=== PATIENT | female | born 1965 | race Caucasian/White ===

== ENCOUNTER → 2016-11-29 | Outpatient (CLI) | payer MEDICARE, BC ==
--- NOTE | 2016-11-29 09:34 | MR ---
MRI brain with and without contrast HISTORY: Multiple sclerosis Multiplanar multisequence and postcontrast images obtained through the brain following 18 cc MultiHan ce IV Correlation to prior MRI brain 05 January 2016 There is no restricted diffusion. Corpus callosum, pituitary, cervical medullary junction, cerebellop ontine angles are stable. There is an interval focus of hyperintensity on inversion recovery and T2-weighted sequences within t he middle cerebellar peduncle on the left measuring 11.5 x 6 mm x 10 mm, there is enhancement followi ng contrast administration. Right cerebellar peduncle lesion is stable. Periventricular white matter again shows multiple foci of hyperintensity on inversion recovery and T2-weighted sequences as on qiana or exam without significant interval change however there is a frontal lesion which is new on the lef t measuring 11 mm x 9 mm x 9 mm. No hydrocephalus or hemorrhage. The orbits show a symmetric appearan ce. Inflammatory change present within the ethmoid air cells. Orbits are stable. IMPRESSION: New plaque in the left frontal deep white matter, left middle cerebellar hemisphere, the left cerebellar lesion shows enhancement.
== END ==
LOC: RADMRIMAIN 08:06
PROVIDERS: ATTEND Nurse Practitioner Acute Care
DX: G93.9 Disorder of brain, unspecified (principal); G35 Multiple sclerosis; Z88.8 Allergy status to other drugs, medicaments and biological substances
CPT/HCPCS: 70553; A9577

== ENCOUNTER → 2017-04-14 | Outpatient (CLI) | payer MEDICARE, BC ==
--- NOTE | 2017-04-15 07:49 | MR ---
EXAMINATION TYPE: MR cspine/tspine/lspine wo con DATE OF EXAM: 04/14/2017 9:30 PM COMPARISON: NONE HISTORY: M54.2 Cervicalgia M54.6 tsp pain M54.5 Lumbago Multiplanar MultiSpin echo imaging of the cervical spine was performed. Comparison: 01/12/2015 C2-C3: No evidence for degenerative disc disease. No disc bulge/herniation or protrusion. No Canal stenosis. Foramina are patent bilaterally. C3-C4: There is mild disc desiccation noted with mild posterocentral disc bulge. Mild effacement of t he ventral sac without myron central stenosis identified. No Canal stenosis. Foramina are patent joana aterally. C4-C5: There is mild disc desiccation noted with mild posterocentral disc bulge. Mild effacement of t he ventral sac without myron central stenosis identified. No Canal stenosis. Foramina are patent joana aterally. C5-C6: There is mild disc desiccation noted with mild posterocentral disc bulge. Mild effacement of t he ventral sac without myron central stenosis identified. No Canal stenosis. Foramina are patent joana aterally. C6-C7: There is mild disc desiccation noted with mild posterocentral disc bulge. Mild effacement of t he ventral sac without myron central stenosis identified. No Canal stenosis. Foramina are patent joana aterally. C7-T1: No evidence for degenerative disc disease. No disc bulge/herniation or protrusion. No Canal stenosis. Foramina are patent bilaterally. Cervical segments are intact. There is normal alignment. Cervical spinal cord is of normal signal. Craniovertebral junction relationships are within normal limits. IMPRESSION: 1. No evidence for cord abnormality. 2. Degenerative disc disease with posterior disc bulging essentially unchanged from prior examination . EXAMINATION TYPE: MR cspine/tspine/lspine wo con DATE OF EXAM: 04/14/2017 9:30 PM COMPARISON: 04/21/2014 HISTORY: M54.2 Cervicalgia M54.6 tsp pain M54.5 Lumbago Multiplanar MultiSpin echo imaging of the thoracic spine was performed. Disc spaces: No evidence for herniation protrusion or significant degenerative disc disease. Spinal canal: No evidence for canal stenosis. No intrinsic or extrinsic lesion. Thoracic spinal cord: Thoracic spinal cord is of normal caliber and signal. Paraspinal soft tissues: No evidence for paraspinal mass. No destructive lesions seen. Vertebral segments: No evidence for fracture or bony lesion. IMPRESSION: Negative study EXAMINATION TYPE: MR cspine/tspine/lspine wo con DATE OF EXAM: 04/14/2017 9:30 PM COMPARISON: NONE HISTORY: M54.2 Cervicalgia M54.6 tsp pain M54.5 Lumbago Multiplanar, MultiSpin echo imaging of the lumbar spine was performed. L1-L2: There is mild disc desiccation noted. Posterior disc bulge without myron herniation or protrus ion. No evidence for central stenosis. Foramina are patent bilaterally. There is evidence of ventral spondylosis. Grade 1 retrolisthesis of L1 on L2 of 2.3 mm. L2-L3: Normal disc appearance without desiccation. No herniation, protrusion or disc bulging. No ca nal stenosis is present. Foramina are patent bilaterally. L3-L4: Lrtj-dd-xkljaigp disc desiccation. Mild posterior disc bulge. No herniation protrusion or cent ral stenosis. Foramina are patent. L4-L5: Severe disc desiccation identified. There is grade 1 anterolisthesis of L4 and L5 measuring 6. 3 mm without spondylolysis. Severe facet joint arthropathy detected. Mild posterior disc bulge. Bilat eral lateral recess stenosis without myron central stenosis. Mild bilateral foraminal encroachment. L5-S1: Mild disc desiccation. Posterocentral disc bulge with small annular tear. No myron herniation. No evidence for central stenosis or foraminal encroachment. Lumbar segments are intact. No paraspinal masses are identified. Conus medullaris has a normal appe arance. IMPRESSION: 1. Degenerative disc disease as discussed. 2. Grade 1 anterolisthesis L4-L5 and grade 1 retrolisthesis of L1 on L2 as noted. 3. Lateral recess stenosis and mild foraminal encroachment at L4-5.
== END | disposition home or self-care (01) ==
LOC: RADMRIMAIN 19:51
PROVIDERS: ATTEND Nurse Practitioner Acute Care
DX: M50.20 Other cervical disc displacement, unspecified cervical region (principal); M50.30 Other cervical disc degeneration, unspecified cervical region; M48.06 Spinal stenosis, lumbar region; M43.16 Spondylolisthesis, lumbar region; M51.36 Other intervertebral disc degeneration, lumbar region; M54.6 Pain in thoracic spine
CPT/HCPCS: 72141; 72146; 72148

== ENCOUNTER → 2017-08-19 | Outpatient (CLI) | payer MEDICARE, BC ==
--- NOTE | 2017-08-20 18:38 | EEG ---
ELECTROENCEPHALOGRAM REPORT DATE OF SERVICE: 08/19/2017. REASON FOR TESTING: Seizures. CURRENT ANTIEPILEPTIC MEDICATIONS: Topamax. DESCRIPTION OF THE PROCEDURE: This EEG was performed using a 21 channel digital electroencephalograph, following international 10-20 system. DESCRIPTION OF THE RECORDING: From the beginning of the tracing, and with patient's eyes closed, the background rhythm was mostly consisting of 9 Hz alpha frequency in the posterior occipital leads. No obvious asymmetry is seen. Frequent movement artifacts are seen. Photic stimulation was performed with a minimal driving response seen. No pathological waves were elicited. Hyperventilation was performed with a minimal buildup of amplitude seen. Again, no pathological waves were elicited. The patient remains awake throughout the tracing. No epileptiform discharges were seen. Her EKG lead showed a regular rate and rhythm. INTERPRETATION: This awake EEG can be considered within normal limits. There was no asymmetry seen. No epileptiform discharges were noticed. The absence of epileptiform discharges does not rule out the diagnosis of epilepsy, therefore clinical correlation is recommended. Thank you, Dr. Varela for allowing me to participate in the care of your patient. If you have any questions, please feel free to contact me. RAJAT / IJN: [id number] /
== END | disposition home or self-care (01) ==
LOC: NEUROMAIN 12:45
PROVIDERS: ATTEND Family Medicine
DX: G40.909 Epilepsy, unspecified, not intractable, without status epilepticus (principal)
CPT/HCPCS: 95819

== ENCOUNTER → 2017-12-20 | Outpatient (CLI) | payer MEDICARE, BC ==
--- NOTE | 2017-12-20 14:13 | MR ---
EXAMINATION TYPE: MR brain wo/w con DATE OF EXAM: 12/20/2017 COMPARISON: Brain MR dated 11/29/2016 HISTORY: MS TECHNIQUE: Multiplanar, multisequence images of the brain and brainstem is performed without and with IV contras t, utilizing 8.5 mL intravenous Gadavist . FINDINGS: Diffusion weighted images demonstrate no evidence of a recent infarct or other diffusion ab normality. There is no extra-axial fluid collection. There is been interval improvement in the abnor mal signal in the left middle cerebellar peduncle. Interval improvement may be also present in the le ft frontal hyperintensity on inversion recovery and T2-weighted sequences, otherwise signal changes a re similar to prior exam. There is no hemorrhage. The ventricular system and cisternal spaces are nor mal in size and appearance. The brain volume is age appropriate. Midline structures demonstrate normal morphology. The craniocervical junction appears within normal limits. Post contrast images demonstrate no abnormal enhancement. The dural venous sinuses appear pa tent. The visualized sinuses are remarkable for inflammatory change in the maxillary sinuses, air-flu id level present in the left maxillary sinus and the globes are intact. IMPRESSION: There is some slight improvement as described, especially involving the left middle cereb ellar peduncle.
== END ==
LOC: RADMRIMAIN 12:37
PROVIDERS: ATTEND Nurse Practitioner Acute Care
DX: R90.89 Other abnormal findings on diagnostic imaging of central nervous system (principal); G35 Multiple sclerosis; Z88.8 Allergy status to other drugs, medicaments and biological substances
CPT/HCPCS: 70553; A9581

== ENCOUNTER → 2018-01-05 | Outpatient (CLI) | payer MEDICARE, BC ==
--- NOTE | 2018-01-05 18:54 | ECHOF ---
Referral Reason:R00.2 palpitations MEASUREMENTS -------- HEIGHT: 162.6 cm WEIGHT: 88.0 kg BP: IVSd: 1.2 cm (0.6 - 1.1) LVIDd: 5.0 cm (3.9 - 5.3) LVPWd: 1.1 cm (0.6 - 1.1) IVSs: 1.3 cm LVIDs: 3.5 cm LVPWs: 1.3 cm LA Diam: 2.8 cm (2.7 - 3.8) RVIDd: 2.9 cm (< 3.3) Ao Diam: 3.8 cm (2.0 - 3.7) LA Diam: 2.5 cm (2.7 - 3.8) AV Cusp: 1.8 cm (1.5 - 2.6) EPSS: 0.4 cm MV E Domenico: 0.74 m/s MV DecT: 268 ms MV A Domenico: 0.80 m/s MV E/A Ratio: 0.93 RAP: 5.00 mmHg RVSP: 19.32 mmHg MV EF SLOPE: 70.64 mm/s (70 - 150) MV EXCURSION: 17.31 mm (> 18.000) FINDINGS -------- Sinus rhythm. This was a technically good study. The left ventricular size is normal. There is mild concentric left ventricular hypertrophy. Overa ll left ventricular systolic function is normal with, an EF between 55 - 60 %. The right ventricle is normal in size. The left atrial size is normal. The right atrial size is normal. There is mild aortic valve sclerosis. There is mild aortic regurgitation. Mild mitral annular calcification present. Mild mitral regurgitation is present. No regurgitation noted There is no evidence of pulmonary hypertension. The right ventricular syst olic pressure, as measured by Doppler, is 19.32mmHg. There is no pulmonic regurgitation present. Aortic Root is mildly dilated. There is no pericardial effusion. CONCLUSIONS -------- 1. The left ventricular size is normal. 2. Overall left ventricular systolic function is normal with, an EF between 55 - 60 %. 3. There is mild aortic valve sclerosis. 4. There is mild aortic regurgitation. 5. Mild mitral annular calcification present. 6. Mild mitral regurgitation is present. 7. No regurgitation noted 8. There is no evidence of pulmonary hypertension. 9. There is no pulmonic regurgitation present. 10. Aortic Root is mildly dilated. 11. There is no pericardial effusion. FORM LAYER: Casandra Lemus RDCS
== END | disposition home or self-care (01) ==
LOC: RADECHMAIN 12:18
PROVIDERS: ATTEND Family Medicine
DX: I08.0 Rheumatic disorders of both mitral and aortic valves (principal)
CPT/HCPCS: 93270; 93271; 93306

== ENCOUNTER → 2018-01-06 | Outpatient (CLI) | payer MEDICARE, BC ==
[2018-01-06 12:42] LABS: Basophils % (A) 1 %; Eosinophils # (A) 0.2 k/uL (0-0.7); Eosinophils % (A) 2 %; HCT 43.2 % (34.0-46.0); HGB 14.1 gm/dL (11.4-16.0); Lymphocytes # (A) 1.9 k/uL (1.0-4.8); Lymphocytes % (A) 24 %; MCH 29.9 pg (25.0-35.0); MCHC 32.7 g/dL (31.0-37.0); MCV 91.4 fL (80.0-100.0); Mean Platelet Volume 7.3; Monocytes # (A) 0.5 k/uL (0-1.0); Monocytes % (A) 6 %; Neutrophils % (A) 65 %; Platelet Count 319 k/uL (150-450); RBC 4.73 m/uL (3.80-5.40); WBC 7.7 k/uL (3.8-10.6)
[2018-01-06 12:53] LABS: ALT 24 U/L (9-52); AST 18 U/L (14-36); Albumin 4.2 g/dL (3.5-5.0); Alkaline Phosphatase 70 U/L (38-126); Anion Gap 12 mmol/L; Blood Urea Nitrogen 14 mg/dL (7-17); Carbon Dioxide 25 mmol/L (22-30); Chloride 108 mmol/L (98-107); Glucose 82 mg/dL (74-99); Potassium 5.1 mmol/L (3.5-5.1); Sodium 145 mmol/L (137-145); Total Bilirubin 0.4 mg/dL (0.2-1.3); Total Protein 7.3 g/dL (6.3-8.2)
== END | disposition home or self-care (01) ==
LOC: LABWHC1 11:52
PROVIDERS: ATTEND Nurse Practitioner Acute Care
DX: G35 Multiple sclerosis (principal)
CPT/HCPCS: 36415; 80053; 85025; 86787

== ENCOUNTER → 2018-12-17 | Outpatient (CLI) | payer MEDICARE, OTHER ==
--- NOTE | 2018-12-17 14:11 | MR ---
EXAMINATION TYPE: MR brain/cspine wo/w DATE OF EXAM: 12/17/2018 COMPARISON: MRI brain dated 12/20/2017 and MRI cervical spine dated 04/14/2017 HISTORY: Multiple sclerosis TECHNIQUE: Multiplanar, multisequence images of the brain and brainstem is performed without and with IV contras t, utilizing 8.5 mL intravenous Gadavist . FINDINGS: BRAIN: Diffusion weighted images demonstrate no evidence of a recent infarct or other diffusion abnor mality. There is no extra-axial fluid collection. The ventricular system and cisternal spaces are no rmal in size and appearance. The brain volume is age appropriate. There is redemonstration of multiple supratentorial and infratentorial T2/FLAIR foci of hyperintensit y predominating in the pericallosal region. There is involvement of the right middle cerebral peduncl e, brendan, right cerebellar hemisphere, juxtacortical white matter, and pericallosal white matter. The infratentorial lesions are unchanged from the prior of 12/20/2017. The supratentorial lesions also vikas ear unchanged in size and number in comparison to the prior. The largest of these is seen within the left frontal lobe on FLAIR fat sat axial image 22 measuring 1.1 x 0.7 cm. No restricted diffusion is seen within these lesions or enhancement. Midline structures demonstrate normal morphology. The craniocervical junction appears within normal limits. Post contrast images demonstrate no abnormal enhancement. The dural venous sinuses appear pa tent. The visualized sinuses are clear and the globes are intact. CERVICAL SPINE: There is very minimal anterolisthesis of C3 on C4 and and straightening of usual cervical lordosis. V ertebral body heights of the cervical spine are maintained. No cervical cord abnormal signal is seen to suggest demyelinating plaque. C2-C3: No significant disc disease, spinal canal stenosis or neural foraminal narrowing. C3-C4: There is a small central disc osteophyte complex and minimal uncovertebral hypertrophy without spinal canal stenosis or neural foraminal narrowing. C4-C5: There is mild uncovertebral hypertrophy and facet arthropathy as well as a broad-based disc bu lge. There is mild effacement of the ventral subarachnoid space with no significant spinal canal sten osis. C5-C6: There is a broad-based disc bulge and minimal uncovertebral hypertrophy as well as facet arthr opathy without significant spinal canal stenosis or neural foraminal narrowing. C6-C7: There is left-sided uncovertebral hypertrophy creating mild to moderate left neural foraminal narrowing. Right neural foramen is patent. Spinal canal is also patent. C7-T1: No significant disc disease, spinal canal stenosis nor neural foraminal narrowing. Postcontrast images demonstrate no significant abnormal enhancement of the cervical spine. IMPRESSION: 1. Stable size and number of the nonenhancing demyelinating white matter plaques in keeping with this patient's history of multiple sclerosis. These are both supratentorial and infratentorial. No restri cted diffusion or enhancement to suggest active demyelination at this time. 2. No abnormal spinal cord signal within the cervical spine. No abnormal enhancement. 3. Mild multilevel degenerative disc disease as seen on the prior of 04/14/2017, overall stable.
== END | disposition home or self-care (01) ==
LOC: RADMRIMAIN 12:07
DX: M50.30 Other cervical disc degeneration, unspecified cervical region (principal); G93.89 Other specified disorders of brain; G35 Multiple sclerosis; Z88.8 Allergy status to other drugs, medicaments and biological substances
CPT/HCPCS: 70553; 72156; A9585

== ENCOUNTER 2020-05-13 17:52 | Emergency (ER) | payer MEDICARE ==
[2020-05-13] MEDS ORDERED: KETOROLAC 15 MG/ML 1 ML VIAL IM STA (18:53)
[2020-05-13] MEDS ORDERED: Acetaminophen-Codeine 300-30mg TAB PO STA (18:53)
[2020-05-13] MEDS ORDERED: diphenhydrAMINE 50 MG CAP PO STA (18:53)
[2020-05-13] MEDS ORDERED: dexAMETHasone 4 MG TAB PO STA (18:53)
--- NOTE | 2020-05-13 18:55 | ED ---
Headache HPI - General Chief Complaint: Headache Stated Complaint: Neuro Symptoms Time Seen by Provider: 05/13/20 18:08 Source: RN notes reviewed, old records reviewed Mode of arrival: ambulatory Limitations: no limitations - History of Present Illness Initial Comments: This is a 54-year-old female presented for evaluation of few complaints including headache with history of migraines neurologic complaints history of NH some numbness and tingling of her face which is normal symptoms. While for a few days now headaches are getting worse. No trauma or travel history, no fevers. Patient does have follow-up with her primary care on Friday, patient has not had any MS exacerbation about 3-4 years. No other neurologic findings per patient no vision changes MD Complaint: headache, "migraine" -: days(s) Onset Description: gradual Location: right Severity: moderate Severity scale (1-10): 4 Quality: throbbing Consistency: constant Improves With: nothing Worsens With: none Associated Symptoms: nausea, weakness, other (Numbness and tingling of the right side of face) - Related Data Home Medications Medication Instructions Recorded Confirmed Cetirizine HCl [Zyrtec] 10 mg PO DAILY 09/03/16 11/21/16 Cholecalciferol [Vitamin D3] 1,000 unit PO DAILY 09/03/16 11/21/16 Doxycycline [Vibramycin] 100 mg PO DAILY PRN 09/03/16 11/21/16 HYDROcodone/APAP 10-325MG [[place] 1 tab PO Q6H PRN 09/03/16 11/21/16 10-325] Ibuprofen [Advil] 200 mg PO Q8HR PRN 09/03/16 11/21/16 Omeprazole 1 - 2 tab PO DAILY 09/03/16 11/21/16 Rizatriptan Benzoate [Maxalt] 10 mg PO DAILY PRN 09/03/16 11/21/16 Sucralfate [Carafate] 1 gm PO DAILY PRN 09/03/16 11/21/16 Topiramate [Topamax] 100 mg PO BID 09/03/16 11/21/16 Vitamin C/Biotin [Hair, Skin and 1 each PO DAILY 11/19/16 11/21/16 Nails] Allergies Allergy/AdvReac Type Severity Reaction Status Date / Time metoclopramide [From Reglan] Allergy Anaphylaxis Verified 05/13/20 17:56 prochlorperazine Allergy Anaphylaxis Verified 05/13/20 17:56 [From Compazine] Review of Systems ROS Statement: Those systems with pertinent positive or pertinent negative responses have been documented in the HPI. ROS Other: All systems not noted in ROS Statement are negative. Past Medical History Past Medical History: GERD/Reflux, GI Bleed, Neurologic Disorder Additional Past Medical History / Comment(s): multiple sclerosis, hx. heart murmur, rosacea, migraines, vomiting blood History of Any Multi-Drug Resistant Organisms: None Reported Past Surgical History: Bladder Surgery, Breast Surgery, Hernia Repair Additional Past Surgical History / Comment(s): breast lumpectomy, tumor removed lt ear Past Anesthesia/Blood Transfusion Reactions: Postoperative Nausea & Vomiting (PONV) Past Psychological History: No Psychological Hx Reported Smoking Status: Never smoker Past Alcohol Use History: None Reported Past Drug Use History: None Reported - Past Family History Mother Family Medical History: Cancer Father Family Medical History: Cancer General Exam Limitations: no limitations General appearance: alert, in no apparent distress Head exam: Present: atraumatic, normocephalic, normal inspection Eye exam: Present: normal appearance, PERRL, EOMI. Absent: scleral icterus, conjunctival injection, periorbital swelling ENT exam: Present: normal exam, mucous membranes moist Neck exam: Present: normal inspection. Absent: tenderness, meningismus, lymphadenopathy Respiratory exam: Present: normal lung sounds bilaterally. Absent: respiratory distress, wheezes, rales, rhonchi, stridor Cardiovascular Exam: Present: regular rate, normal rhythm, normal heart sounds. Absent: systolic murmur, diastolic murmur, rubs, gallop, clicks GI/Abdominal exam: Present: soft, normal bowel sounds. Absent: distended, tenderness, guarding, rebound, rigid Extremities exam: Present: normal inspection, full ROM, normal capillary refill. Absent: tenderness, pedal edema, joint swelling, calf tenderness Back exam: Present: normal inspection Neurological exam: Present: alert, oriented X3, CN II-XII intact Psychiatric exam: Present: normal affect, normal mood Skin exam: Present: warm, dry, intact, normal color. Absent: rash Course Vital Signs 05/13/20 17:53 Temperature 99.6 F Pulse Rate 103 H Respiratory 18 Rate Blood Pressure 162/96 O2 Sat by Pulse 97 Oximetry - Reevaluation(s) Reevaluation #1: 05/13/20 18:55 Medical records reviewed Reevaluation #2: 05/13/20 19:37 Patient does have symptoms improved Reevaluation #3: 05/13/20 19:37 Informed of results okay for discharge Medical Decision Making - Medical Decision Making 54 female DF for headache and MS exacerbation, patient be placed on steroids, anti-inflammatories and can be discharged home - Radiology Data Radiology results: report reviewed (CT brain is negative for acute disease), image reviewed Disposition Clinical Impression: Headache, Exacerbation of multiple sclerosis Disposition: HOME SELF-CARE Condition: Good Instructions (If sedation given, give patient instructions): Acute Headache (ED) Is patient prescribed a controlled substance at d/c from ED?: No Referrals: Jarred Varela DO [Primary Care Provider] - 1-2 days
--- NOTE | 2020-05-13 19:34 | CT ---
EXAMINATION TYPE: CT brain wo con DATE OF EXAM: 05/13/2020 COMPARISON: 06/28/2015 HISTORY: Right side facial tingling CT DLP: 1082.4 mGycm Automated exposure control for dose reduction was used. The ventricles and sulci appear normal. There is no mass effect nor midline shift. There is no sign o f intracranial hemorrhage. The calvarium appears intact. There is no evidence of cerebral edema. IMPRESSION: Negative unenhanced head CT scan. No adverse change.
[2020-05-13 19:50] VITALS: BP 158/72; PULSE 92; RESP 20; TEMP 99.2
== END 2020-05-13 19:50 | disposition home or self-care (01) ==
LOC: EC 17:52
DX: G35 Multiple sclerosis (principal); R51 Headache; K21.9 Gastro-esophageal reflux disease without esophagitis; Z79.899 Other long term (current) drug therapy; Z88.8 Allergy status to other drugs, medicaments and biological substances; Z86.69 Personal history of other diseases of the nervous system and sense organs
CPT/HCPCS: 96372; 99284; 70450; J8540; J1885

== ENCOUNTER → 2020-05-22 | Outpatient (CLI) | payer MEDICARE ==
--- NOTE | 2020-05-23 06:50 | MR ---
EXAMINATION TYPE: MR brain wo/w con DATE OF EXAM: 05/22/2020 COMPARISON: 12/20/2017 HISTORY: MS, rt facial and joana leg numbness CONTRAST: Performed utilizing 10 mL intravenous Gadavist gadolinium contrast. TECHNIQUE: Multiplanar, multisequence imaging of the brain is performed on a 3.0 Niya magnet. Demye linating disease protocol with additional Sagittal Flair sequence is performed. Study is performed wi thin 24 hours of arrival to the hospital. FINDINGS: T2 White Matter Lesions Present : Yes Approximate Number of Lesions: Multiple scattered Locations Identified : Subcortical left frontal lobe. Ventricular, centrum semiovale, right cerebella r peduncle Size of Largest Lesion(s): 1. 2.2 x 0.7 x 1.2 cm. Location: Left frontal centrum semiovale Sequence 501 Image 22 (axial) and Se quence 601 Image 14 (sagittal). 2. 0.9 x 0.6 x 1.0 cm. Location: Left periventricular Sequence 501 Image 21 (axial) and Sequence 60 Image 15 (sagittal). Enhancing Lesion(s) Present: No Change from Prior: Stable Diffusion-weighted imaging is performed. No abnormal hyperintensity is present to suggest an acute i ntracranial infarct or acute ischemic change. Ventricles and sulci are appropriate for the patient age. There are no abnormal extra-axial fluid collections. The ventricular system and cisternal spaces are normal in size and appearance. The brain volume is age appropriate. The craniocervical junction vikas ears within normal limits. The dural venous sinuses appear patent. No abnormal enhancement is present on post contrast images. . Mild mucosal thickening is within the r ight maxillary sinus. Previous left maxillary air-fluid level has resolved. Remaining paranasal sinus es and mastoid air cells are clear. IMPRESSION: 1. Stable multiple white matter changes can be suggestive for and compatible with, but are not diagn ostic of, multiple sclerosis.
== END | disposition home or self-care (01) ==
LOC: RADMRIMAIN 14:54
PROVIDERS: ATTEND Family Medicine
DX: G35 Multiple sclerosis (principal)
CPT/HCPCS: 70553; A9585

== ENCOUNTER → 2020-08-17 | Outpatient (CLI) | payer MEDICARE ==
[2020-08-17 10:25] LABS: Basophils # (A) 0.1 k/uL (0-0.2); Basophils % (A) 1 %; Eosinophils # (A) 0.4 k/uL (0-0.7); Eosinophils % (A) 4 %; HCT 41.7 % (34.0-46.0); HGB 13.5 gm/dL (11.4-16.0); Lymphocytes # (A) 2.7 k/uL (1.0-4.8); Lymphocytes % (A) 28 %; MCHC 32.5 g/dL (31.0-37.0); MCV 89.3 fL (80.0-100.0); Mean Platelet Volume 6.8; Monocytes # (A) 0.6 k/uL (0-1.0); Monocytes % (A) 6 %; Neutrophils # (A) 5.8 k/uL (1.3-7.7); Neutrophils % (A) 60 %; Platelet Count 328 k/uL (150-450); RBC 4.67 m/uL (3.80-5.40); RDW 12.7 % (11.5-15.5); WBC 9.7 k/uL (3.8-10.6)
[2020-08-17 15:05] LABS: African American GFR (CKD) 65.9 (60.0-200.0); Albumin 4.2 g/dL (3.80-4.90); Albumin/Globulin Ratio 1.62 (1.60-3.17); Anion Gap 6.8 mmol/L (4.00-12.00); BUN/Creat Ratio 21.82 Ratio (12.00-20.00); Calcium 9.5 mg/dL (8.7-10.3); Carbon Dioxide 24.2 mmol/L (21.6-31.8); Globulin 2.6 g/dL (1.6-3.3); Non-African American GFR(CKD) 56.9 (60.0-200.0); Potassium 4.9 mmol/L (3.5-5.5); Total Bilirubin 0.3 mg/dL (0.2-1.2); Total Protein 6.8 g/dL (6.2-8.2)
== END | disposition home or self-care (01) ==
LOC: LABWHC1 09:17
PROVIDERS: ATTEND Nurse Practitioner Acute Care
DX: G35 Multiple sclerosis (principal); E55.9 Vitamin D deficiency, unspecified
CPT/HCPCS: 36415; 80053; 82306; 85025

== ENCOUNTER → 2020-09-04 | Outpatient (CLI) | payer MEDICARE ==
--- NOTE | 2020-09-04 13:33 | ECHOF ---
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 This was a technically good study. LV size, wall thickness and systolic function are normal, with an EF greater than 55%. The left sandy tricular size is normal. The right ventricle is normal in size. The left atrial size is normal. The right atrial size is normal. There is mild aortic valve sclerosis. Trace to mild aortic regurgitation. There is no evidence of aortic stenosis. Mild mitral regurgitation is present. Trace tricuspid regurgitation present. Right ventricular systolic pressure is normal at < 35 mmHg. There is no pulmonic regurgitation present. The aortic root size is normal. There is no pericardial effusion. CONCLUSIONS -------- 1. LV size, wall thickness and systolic function are normal, with an EF greater than 55%. 2. The left ventricular size is normal. 3. The right ventricle is normal in size. 4. The right atrial size is normal. 5. Trace to mild aortic regurgitation. 6. Mild mitral regurgitation is present. 7. Trace tricuspid regurgitation present. 8. The aortic root size is normal. 9. There is no pericardial effusion. ACCOUNT MANAGER SALES REPRESENTATIVE: Casandra Lemus RDCS
== END | disposition home or self-care (01) ==
LOC: RADECHMAIN 11:18
PROVIDERS: ATTEND Family Medicine
DX: I08.0 Rheumatic disorders of both mitral and aortic valves (principal)
CPT/HCPCS: 93306

== ENCOUNTER → 2021-04-17 | Outpatient (CLI) | payer MEDICARE ==
[2021-04-17 15:05] LABS: Basophils # (A) 0.05 X 10*3/uL (0.00-0.10); Basophils % (A) 0.4 %; Eosinophils # (A) 0.27 X 10*3/uL (0.04-0.35); Eosinophils % (A) 2.2 %; HCT 42.2 % (37.2-46.3); HGB 13.9 g/dL (12.0-15.0); Lymphocytes # (A) 2.75 X 10*3/uL (0.90-5.00); Lymphocytes % (A) 22.5 %; MCH 30.2 pg (27.0-32.0); MCHC 32.9 g/dL (32.0-37.0); MCV 91.5 fL (80.0-97.0); Mean Platelet Volume 9.5 fL (9.5-12.2); Monocytes # (A) 0.99 X 10*3/uL (0.20-1.00); Monocytes % (A) 8.1 %; Neutrophils # (A) 8.11 X 10*3/uL (1.80-7.70); Neutrophils % (A) 66.4 %; Platelet Count 395 X 10*3/uL (140-440); RBC 4.61 X 10*6/uL (4.10-5.20); RDW 12.7 % (11.5-14.5); WBC 12.22 X 10*3/uL (4.50-10.00)
[2021-04-17 18:21] LABS: African American GFR (CKD) 73.4 (60.0-200.0); Albumin 4.4 g/dL (3.80-4.90); Albumin/Globulin Ratio 1.42 (1.60-3.17); Anion Gap 8.6 mmol/L (4.00-12.00); Carbon Dioxide 28.4 mmol/L (21.6-31.8); Globulin 3.1 g/dL (1.6-3.3); Non-African American GFR(CKD) 63.4 (60.0-200.0); Potassium 4.5 mmol/L (3.5-5.5); Total Bilirubin 0.4 mg/dL (0.2-1.2); Total Protein 7.5 g/dL (6.2-8.2)
[2021-04-17 18:28] LABS: T4, Free (Free Thyroxine) 1.3 ng/dL (0.80-1.80)
== END | disposition home or self-care (01) ==
LOC: LABWHC1 09:49
PROVIDERS: ATTEND Nurse Practitioner Acute Care
DX: E53.9 Vitamin B deficiency, unspecified (principal); E55.9 Vitamin D deficiency, unspecified; Z51.81 Encounter for therapeutic drug level monitoring
CPT/HCPCS: 36415; 80053; 82306; 82607; 84207; 84439; 84443; 84481; 85025

== ENCOUNTER 2021-05-16 19:53 | Emergency (ER) | payer MEDICARE ==
[2021-05-16] MEDS ORDERED: SODIUM CHLORIDE 0.9% 1,000 ML IV STA (20:04)
[2021-05-16 20:05] VITALS: TEMP 97.1
--- NOTE | 2021-05-16 20:13 | ED ---
General Adult HPI - General Chief complaint: Dizziness Stated complaint: Near Syncope Time Seen by Provider: 05/16/21 19:55 Source: patient, EMS, RN notes reviewed, old records reviewed Mode of arrival: EMS Limitations: no limitations - History of Present Illness Initial comments: This a 55-year-old female presents emergency department with past medical history significant for high blood pressure. Patient states she takes a blood pressure medication. Patient states last time she was at the doctor's office recently her blood pressure was low and they wanted her to be reevaluated for but she has yet to do so. Patient states she was standing in line at a carnival to get some food and she became very lightheaded and thought she was given a passout. Patient states she sat down and symptoms resolve so she stood back up is initiated the lightheadedness came back and thought she was going to pass out again. At this point time she sat down eventually down and called EMS. She states that she suddenly and down in the ambulance she feels considerably better. Patient states at no time did she have a headache or any numbness or weakness. Patient denies any episode of difficulty breathing shortness of breath or chest pain. Patient denies any palpitation. Patient states her only symptom was standing made her feel lightheaded. Patient denies any symptoms at this time states she feels at her baseline. Patient states she's had no diarrhea or vomiting. Patient states she's been drinking good but not eating very well. Food she had all day today with some burrows tomatoes. - Related Data Home Medications Medication Instructions Recorded Confirmed Cetirizine HCl [Zyrtec] 10 mg PO DAILY 09/03/16 11/21/16 Cholecalciferol [Vitamin D3] 1,000 unit PO DAILY 09/03/16 11/21/16 Doxycycline [Vibramycin] 100 mg PO DAILY PRN 09/03/16 11/21/16 HYDROcodone/APAP 10-325MG [Croton 1 tab PO Q6H PRN 09/03/16 11/21/16 10-325] Ibuprofen [Advil] 200 mg PO Q8HR PRN 09/03/16 11/21/16 Omeprazole 1 - 2 tab PO DAILY 09/03/16 11/21/16 Rizatriptan Benzoate [Maxalt] 10 mg PO DAILY PRN 09/03/16 11/21/16 Sucralfate [Carafate] 1 gm PO DAILY PRN 09/03/16 11/21/16 Topiramate [Topamax] 100 mg PO BID 09/03/16 11/21/16 Vitamin C/Biotin [Hair, Skin and 1 each PO DAILY 11/19/16 11/21/16 Nails] Previous Rx's Medication Instructions Recorded Dexamethasone [Decadron] 4 mg PO TID #15 tablet 05/13/20 Allergies Allergy/AdvReac Type Severity Reaction Status Date / Time metoclopramide [From Reglan] Allergy Anaphylaxis Verified 05/13/20 17:56 prochlorperazine Allergy Anaphylaxis Verified 05/13/20 17:56 [From Compazine] Review of Systems ROS Statement: Those systems with pertinent positive or pertinent negative responses have been documented in the HPI. ROS Other: All systems not noted in ROS Statement are negative. Past Medical History Past Medical History: GERD/Reflux, GI Bleed, Neurologic Disorder Additional Past Medical History / Comment(s): multiple sclerosis, hx. heart murmur, rosacea, migraines, vomiting blood History of Any Multi-Drug Resistant Organisms: None Reported Past Surgical History: Bladder Surgery, Breast Surgery, Hernia Repair Additional Past Surgical History / Comment(s): breast lumpectomy, tumor removed lt ear Past Anesthesia/Blood Transfusion Reactions: Postoperative Nausea & Vomiting (PONV) Past Psychological History: Anxiety Smoking Status: Never smoker Past Alcohol Use History: Rare Past Drug Use History: None Reported - Past Family History Mother Family Medical History: Cancer Father Family Medical History: Cancer General Exam - General Exam Comments Initial Comments: GENERAL: Patient is well-developed and well-nourished. Patient is nontoxic and well- hydrated and is in no acute distress. ENT: Neck is soft and supple. No significant lymphadenopathy is noted. Oropharynx is clear. Moist mucous membranes. Neck has full range of motion without eliciting any pain. EYES: The sclera were anicteric and conjunctiva were pink and moist. Extraocular movements were intact and pupils were equal round and reactive to light. Eyelids were unremarkable. PULMONARY: Unlabored respirations. Good breath sounds bilaterally. No audible rales rhonchi or wheezing was noted. CARDIOVASCULAR: There is a regular rate and rhythm without any murmurs gallops or rubs. ABDOMEN: Soft and nontender with normal bowel sounds. SKIN: Skin is clear with no lesions or rashes and otherwise unremarkable. NEUROLOGIC: Patient is alert and oriented x3. Cranial nerves II through XII are grossly intact. Motor and sensory are also intact. Normal speech, volume and content. Symmetrical smile. MUSCULOSKELETAL: Normal extremities with adequate strength and full range of motion. No lower extremity swelling or edema. No calf tenderness. LYMPHATICS: No significant lymphadenopathy is noted PSYCHIATRIC: Normal psychiatric evaluation. Limitations: no limitations Course Vital Signs 05/16/21 05/16/21 19:53 20:33 Temperature 97.1 F L Pulse Rate 18 L Pulse Rate [ 92 Pulse Oximetery ] Respiratory 96 H 18 Rate Blood Pressure 110/91 Blood Pressure 109/81 [Right Arm Sitting] Blood Pressure 119/92 [Right Arm Standing] Blood Pressure 108/69 [Right Arm Supine] O2 Sat by Pulse 99 Oximetry Medical Decision Making - Medical Decision Making EKG shows sinus rhythm at 84 bpm UT interval is 2:30 QRS is 82 QT interval 384 QTC is 453. Patient's EKG shows inverted T waves in II, III, and F aVF on a previous EKG she did show inverted T waves in 3 but not 2 and aVF. Patient denies any chest pain short of breath at any time today. Chest x-ray shows no acute abnormality. I will back to reevaluate the patient she stated she never had any symptoms while she was in the emergency department. Patient states she's also on Adderall for weight loss. - Lab Data Result diagrams: 05/16/21 20:15 05/16/21 20:15 Lab Results 05/16/21 05/16/21 05/16/21 Range/Units 20:15 20:15 20:15 WBC 13.8 H (3.8-10.6) k/uL RBC 4.35 (3.80-5.40) m/uL Hgb 13.7 (11.4-16.0) gm/dL Hct 40.2 (34.0-46.0) % MCV 92.5 (80.0-100.0) fL MCH 31.6 (25.0-35.0) pg MCHC 34.1 (31.0-37.0) g/dL RDW 13.6 (11.5-15.5) % Plt Count 356 (150-450) k/uL MPV 7.2 Neutrophils % 78 % Lymphocytes % 12 % Monocytes % 6 % Eosinophils % 2 % Basophils % 0 % Neutrophils # 10.8 H (1.3-7.7) k/uL Lymphocytes # 1.7 (1.0-4.8) k/uL Monocytes # 0.8 (0-1.0) k/uL Eosinophils # 0.3 (0-0.7) k/uL Basophils # 0.1 (0-0.2) k/uL PT 10.4 (9.0-12.0) sec INR 1.0 (<1.2) APTT 18.6 L (22.0-30.0) sec Sodium 136 L (137-145) mmol/L Potassium 3.6 (3.5-5.1) mmol/L Chloride 103 (98-107) mmol/L Carbon Dioxide 21 L (22-30) mmol/L Anion Gap 12 mmol/L BUN 21 H (7-17) mg/dL Creatinine 1.38 H (0.52-1.04) mg/dL Est GFR (CKD-EPI)AfAm 50 (>60 ml/min/1.73 sqM) Est GFR (CKD-EPI)NonAf 43 (>60 ml/min/1.73 sqM) Glucose 110 H (74-99) mg/dL POC Glucose (mg/dL) (75-99) mg/dL POC Glu Manager Metrology ID Calcium 9.6 (8.4-10.2) mg/dL Magnesium 2.2 (1.6-2.3) mg/dL Total Bilirubin 0.6 (0.2-1.3) mg/dL AST 45 H (14-36) U/L ALT 50 H (4-34) U/L Alkaline Phosphatase 69 (38-126) U/L Troponin I (0.000-0.034) ng/mL Total Protein 7.3 (6.3-8.2) g/dL Albumin 4.4 (3.5-5.0) g/dL 05/16/21 05/16/21 Range/Units 20:15 20:22 WBC (3.8-10.6) k/uL RBC (3.80-5.40) m/uL Hgb (11.4-16.0) gm/dL Hct (34.0-46.0) % MCV (80.0-100.0) fL MCH (25.0-35.0) pg MCHC (31.0-37.0) g/dL RDW (11.5-15.5) % Plt Count (150-450) k/uL MPV Neutrophils % % Lymphocytes % % Monocytes % % Eosinophils % % Basophils % % Neutrophils # (1.3-7.7) k/uL Lymphocytes # (1.0-4.8) k/uL Monocytes # (0-1.0) k/uL Eosinophils # (0-0.7) k/uL Basophils # (0-0.2) k/uL PT (9.0-12.0) sec INR (<1.2) APTT (22.0-30.0) sec Sodium (137-145) mmol/L Potassium (3.5-5.1) mmol/L Chloride (98-107) mmol/L Carbon Dioxide (22-30) mmol/L Anion Gap mmol/L BUN (7-17) mg/dL Creatinine (0.52-1.04) mg/dL Est GFR (CKD-EPI)AfAm (>60 ml/min/1.73 sqM) Est GFR (CKD-EPI)NonAf (>60 ml/min/1.73 sqM) Glucose (74-99) mg/dL POC Glucose (mg/dL) 111 H (75-99) mg/dL POC Glu Manager Metrology ID Saroj Ruslan Calcium (8.4-10.2) mg/dL Magnesium (1.6-2.3) mg/dL Total Bilirubin (0.2-1.3) mg/dL AST (14-36) U/L ALT (4-34) U/L Alkaline Phosphatase (38-126) U/L Troponin I <0.012 (0.000-0.034) ng/mL Total Protein (6.3-8.2) g/dL Albumin (3.5-5.0) g/dL Disposition Clinical Impression: Orthostatic hypotension, Renal insufficiency Disposition: HOME SELF-CARE Condition: Good Instructions (If sedation given, give patient instructions): Hypotension (ED) Additional Instructions: Patient should monitor her blood pressure before breakfast lunch dinner in bed. Patient should document this of the doctor can follow-up with her. Patient also should follow up because of her renal insufficiency. Patient will also cut her blood pressure medication and Half until she follows up. Is patient prescribed a controlled substance at d/c from ED?: No Referrals: Jarred Varela DO [Primary Care Provider] - 1-2 days Time of Disposition: 21:21
[2021-05-16 20:25] LABS: Glucose,Whole Blood 111 mg/dL (75-99)
[2021-05-16 20:34] LABS: Basophils # (A) 0.1 k/uL (0-0.2); Basophils % (A) 0 %; Eosinophils # (A) 0.3 k/uL (0-0.7); Eosinophils % (A) 2 %; HCT 40.2 % (34.0-46.0); HGB 13.7 gm/dL (11.4-16.0); Lymphocytes # (A) 1.7 k/uL (1.0-4.8); Lymphocytes % (A) 12 %; MCH 31.6 pg (25.0-35.0); MCHC 34.1 g/dL (31.0-37.0); MCV 92.5 fL (80.0-100.0); Mean Platelet Volume 7.2; Monocytes # (A) 0.8 k/uL (0-1.0); Monocytes % (A) 6 %; Neutrophils # (A) 10.8 k/uL (1.3-7.7); Neutrophils % (A) 78 %; Platelet Count 356 k/uL (150-450); RBC 4.35 m/uL (3.80-5.40); RDW 13.6 % (11.5-15.5); WBC 13.8 k/uL (3.8-10.6)
--- NOTE | 2021-05-16 20:41 | XR ---
EXAMINATION TYPE: XR chest 2V DATE OF EXAM: 05/16/2021 COMPARISON: NONE HISTORY: Chest pain TECHNIQUE: 2 views FINDINGS: Heart and mediastinum are within normal limits. Lungs are clear. Diaphragm is normal. Bony thorax is intact. There is no pleural effusion. There are no hilar masses. IMPRESSION: No active cardiopulmonary disease. Normal heart.
[2021-05-16 20:47] LABS: Albumin 4.4 g/dL (3.5-5.0); Calcium 9.6 mg/dL (8.4-10.2); Magnesium 2.2 mg/dL (1.6-2.3); Potassium 3.6 mmol/L (3.5-5.1); Total Bilirubin 0.6 mg/dL (0.2-1.3); Total Protein 7.3 g/dL (6.3-8.2)
[2021-05-16 20:53] LABS: Prothrombin Time 10.4 sec (9.0-12.0)
[2021-05-16 21:04] LABS: Partial Thromboplastin Time 18.6 sec (22.0-30.0)
[2021-05-16 22:03] VITALS: BP 114/70; PULSE 88; RESP 17
== END 2021-05-16 22:03 | disposition home or self-care (01) ==
LOC: EC 19:53
DX: I95.1 Orthostatic hypotension (principal); N28.9 Disorder of kidney and ureter, unspecified; K21.9 Gastro-esophageal reflux disease without esophagitis; F41.9 Anxiety disorder, unspecified; Z79.1 Long term (current) use of non-steroidal anti-inflammatories (NSAID); Z79.52 Long term (current) use of systemic steroids; Z79.899 Other long term (current) drug therapy
CPT/HCPCS: 36415; 71046; 80053; 83735; 84484; 85025; 85610; 85730; 93005; 96360; 96361; 99285

== ENCOUNTER → 2021-09-27 | Outpatient (CLI) | payer MEDICARE ==
--- NOTE | 2021-09-28 00:52 | MR ---
EXAMINATION TYPE: MR brain/cspine wo/w DATE OF EXAM: 09/27/2021 COMPARISON: HISTORY: MS, Yearly f/u, joana weakness, headaches CONTRAST: Standard multiplanar, multisequence MRI departmental protocol images were obtained without contrast a nd with 10 mL intravenous Gadavist gadolinium contrast. Ventricles have normal size. There is no mass effect nor midline shift. There is no evidence of intra cranial hemorrhage. Diffusion images showed no evidence of acute infarct. On the T2 and FLAIR images there are multiple discrete foci of increased signal adjacent to the lateral ventricles in the white matter measuring up to 8 mm. Total number is approximately 15. Most of these lesions are less than 5 mm. The brainstem is intact. Cerebellum is intact. White matter lesions are concentrated mostly in th e parietal lobes. Contrast images show no pathologic enhancement. There is normal enhancement of the venous sinuses. The corpus callosum is intact. Brainstem appears normal. Sella turcica is normal. There is no evidenc e of orbital mass. There is minimal mucosal thickening in the maxillary and ethmoid sinuses. IMPRESSION: Multiple white matter high signal foci in the frontal and parietal lobes and to lesser extent the pos terior temporal lobes that could relate to demyelinating disease. Microvascular ischemia also possibl e. No enhancement. Mild ethmoid and maxillary sinusitis. Cervical spine. The cervical vertebra have fairly normal alignment. There is minimal posterior disc bulging at C5-6 a nd C6-7. There is developmentally adequate spinal canal and no spinal stenosis. Cervical spinal cord has normal signal pattern. There is no edema. There is no compression fracture. I see no focal bony d estructive process. Contrast images show no pathologic enhancement of the cervical spine. IMPRESSION: Minor degenerative changes in the cervical spine. No spinal stenosis. No evidence of demyelinating di sease. No fracture.
== END | disposition home or self-care (01) ==
LOC: RADMRIMAIN 07:25
PROVIDERS: ATTEND Psychiatry & Neurology Neurology
DX: G35 Multiple sclerosis (principal); M47.812 Spondylosis without myelopathy or radiculopathy, cervical region; J32.8 Other chronic sinusitis
CPT/HCPCS: 70553; 72156; A9585

== ENCOUNTER → 2021-09-28 | Outpatient (CLI) | payer MEDICARE ==
--- NOTE | 2021-09-28 10:39 | MR ---
EXAMINATION TYPE: MR lumbar spine wo/w con DATE OF EXAM: 09/28/2021 COMPARISON: 04/14/2017 HISTORY: Follow up for MS. TECHNIQUE: T1 and T2 axial and sagittal and postcontrast T1 sagittal and axial images of the lumbar spine are submitted. CONTRAST: 10 mL gadolinium best FINDINGS: There is no abnormal signal seen within the visualized spinal cord or paraspinal soft tissu es. Heterogeneous marrow signal is nonspecific increasing osteopenia or proptosis, marrow reconversio n, correlate clinically to exclude lymphoproliferative disorder is felt less likely. At L1-2 there is degenerative disc disease with disc bulging but no focal herniation or canal stenosi s or neural foramina remain patent At L2-3 there is facet arthropathy and mild disc desiccation with no evidence of disc herniation, can al stenosis, or foraminal encroachment At L3-4 there is degenerative disc disease with no disc herniation or canal stenosis. Foraminal encro achment. Mild hypertrophic change of facets and ligamentum flavum. At L4-5 there is severe degenerative disc disease with grade 1 anterolisthesis of L4 on L5 measuring approximately 6.4 mm similar to the prior exam. Results in bilateral foraminal protrusions. Severe fa cet arthropathy and ligamentum flavum hypertrophy contribute to borderline to mild central stenosis. Mild broad-based disc bulge. At L5-S1 there is severe degenerative disc disease with severe arthropathy but no discrete disc herni ation or canal stenosis. Suspect a subtle annular tear similar to the prior exam. Very subtle disc bu lging is stable. IMPRESSION: 1. Stable multilevel degenerative disc disease with grade 1 anterolisthesis L4-L5. Disc bulging and h ypertrophic changes result in bilateral foraminal encroachment and mild central stenosis. 2. Stable annular tear and disc bulging L5-S1 unchanged from prior exam. No Canal stenosis. 3. No abnormal signal within the visualized spinal cord. 4. Nonspecific stable heterogeneous marrow signal. See above. EXAMINATION TYPE: MR thoracic spine wo/w con DATE OF EXAM: 09/28/2021 COMPARISON: 04/14/2017 HISTORY: Follow up for MS. CONTRAST: Standard multiplanar, multisequence MRI departmental protocol images were obtained without contrast a nd with 10 mL intravenous Gadavist gadolinium contrast. FINDINGS: There is mild multilevel disc desiccation. Alignment is anatomic. There are no compression deformitie s. Degenerative change lower cervical spine. Multilevel spondylosis. Vertebral body hemangioma in the thoracic spine. There is no evidence of disc herniation or canal merle nosis. The visualized levels. Spinal cord demonstrates normal appearance no abnormal signal. There is no abnormal enhancement postc ontrast degeneration. Nonspecific heterogeneous marrow signal. Findings are similar to prior exam. IMPRESSION: 1. Multilevel degenerative disc disease with no diagnostic evidence of abnormal signal in the spinal cord. 2. Degenerative change lower cervical spine 3. Nonspecific heterogeneous marrow signal. Similar to prior exam.
== END | disposition home or self-care (01) ==
LOC: RADMRIMAIN 08:19
PROVIDERS: ATTEND Psychiatry & Neurology Neurology
DX: G35 Multiple sclerosis (principal); M51.36 Other intervertebral disc degeneration, lumbar region; M48.061 Spinal stenosis, lumbar region without neurogenic claudication; M51.34 Other intervertebral disc degeneration, thoracic region; M43.16 Spondylolisthesis, lumbar region; M51.27 Other intervertebral disc displacement, lumbosacral region
CPT/HCPCS: 72157; 72158; A9585

== ENCOUNTER → 2022-02-15 | Outpatient (CLI) | payer MEDICARE ==
--- NOTE | 2022-02-15 11:38 | FL ---
EXAMINATION TYPE: FL barium swallow w video DATE OF EXAM: 02/15/2022 MODIFIED SWALLOW / DEGLUTITION STUDY CLINICAL HISTORY: Dysphagia. History of multiple sclerosis. TECHNIQUE: Deglutition study is performed utilizing thin liquid barium, honey and nectar thick liqui d barium, barium thick applesauce, and barium coated cracker. 1 7 seconds of fluoro time and 0 image s obtained. COMPARISON: None. FINDINGS: The oral and pharyngeal phases show satisfactory initiation and propagation with all modali ties tested. Normal mastication is seen with solid modalities tested. There is no evidence of penet ration or aspiration with any modality tested. No significant pharyngeal residue was appreciated. IMPRESSION: Normal deglutition study. Please refer to speech therapist notes for further details if necessary.
== END | disposition home or self-care (01) ==
LOC: RADFLMAIN 09:04
PROVIDERS: ATTEND Psychiatry & Neurology Neurology
DX: G35 Multiple sclerosis (principal); R13.10 Dysphagia, unspecified
CPT/HCPCS: 74230

== ENCOUNTER → 2022-04-29 | Outpatient (CLI) | payer MEDICARE ==
--- NOTE | 2022-04-29 15:54 | CT ---
EXAMINATION TYPE: CT urogram wo/w con DATE OF EXAM: 04/29/2022 HISTORY: gross hematuria CT DLP: 4490.6mGycm Automated Exposure Control for Dose Reduction was Utilized. CONTRAST: CT scan of the abdomen and pelvis is performed without oral and without and with IV Contrast, patient injected with 70 mL of Isovue 300. Urogram protocol with 3-D reconstructed images created on an [employer] [place] workstation and reviewed. COMPARISON: CT November 12, 2011 FINDINGS: KUB: Noncontrast images show no renal calculi bilaterally. Postcontrast images show symmetric cortica l medullary uptake and excretion without concerning solid or cystic renal mass or hydronephrosis seen bilaterally. No suspicious mass or calculus in the ureters bilaterally. No intraluminal calculus or suspicious mass in the bladder. LUNG BASES: No significant abnormality is appreciated. LIVER/GB: Hypodense lesion lateral left hepatic lobe measures 2.0 x 1.4 cm axial image 14 is less pro minent and smaller size from prior study suggesting benign etiology. PANCREAS: No significant abnormality is seen. SPLEEN: No significant abnormality is seen. ADRENALS: No significant abnormality is seen. BOWEL: New small size hiatal hernia. Stomach poorly distended and thus suboptimally evaluated. No shirley picious small or large bowel dilatation. UTERUS/ADNEXA: Small scattered bilateral pelvic phleboliths are present. Uterus surgically absent or markedly atrophic. LYMPH NODES: No greater than 1cm abdominal or pelvic lymph nodes are appreciated. OSSEOUS STRUCTURES: Grade 1 anterolisthesis L4 on L5. Moderate to severe disc space narrowing with va cuum disc phenomenon L4-L5 level. Mild to moderate disc space narrowing L5-S1 level. OTHER: No significant additional abnormality is seen. IMPRESSION: Source of gross hematuria not identified.
== END | disposition home or self-care (01) ==
LOC: RADCTMAIN 13:39
PROVIDERS: ATTEND Urology
DX: R31.0 Gross hematuria (principal)
CPT/HCPCS: 74178; 74400; Q9967

== ENCOUNTER → 2022-12-18 | Outpatient (CLI) | payer MEDICARE ==
--- NOTE | 2022-12-18 11:52 | XR ---
EXAMINATION TYPE: XR chest 2V DATE OF EXAM: 12/18/2022 COMPARISON: 05/16/2021 HISTORY: Shortness of breath TECHNIQUE: Frontal and lateral views of the chest are obtained. FINDINGS: Scattered senescent parenchymal changes noted. Hyperinflation compatible with COPD. Groundglass perihilar densities may reflect developing infiltrate. Correlate clinically. Heart size is stable. Mediastinal structures are stable and grossly unremarkable. No evidence for hilar prominence. Degenerative changes dorsal spine. IMPRESSION: 1. Groundglass perihilar densities may reflect developing infiltrate. Correlate clinically.
== END | disposition home or self-care (01) ==
LOC: RADXRMAIN 11:21
PROVIDERS: ATTEND Family Medicine
DX: J98.4 Other disorders of lung (principal); J18.9 Pneumonia, unspecified organism; J40 Bronchitis, not specified as acute or chronic
CPT/HCPCS: 71046

== ENCOUNTER → 2023-01-22 | Outpatient (CLI) | payer MEDICARE ==
--- NOTE | 2023-01-22 20:11 | CT ---
EXAMINATION TYPE: CT chest wo con CT DLP: 1335.30 mGycm, Automated exposure control for dose reduction was used. DATE OF EXAM: 01/22/2023 4:49 PM COMPARISON: 12/11/2011 CT CLINICAL INDICATION:Female, 57 years old with history of R06.09 OTHER FORMS OF DYSPNEA, SOB since hav ing covid sep 2022. TECHNIQUE: Multiple axial images were obtained through the chest. Sagittal and coronal reformats were created for review. Contrast used: none. Oral contrast used: none. FINDINGS: LUNGS: There is no evidence of interstitial thickening, significant groundglass opacity, honeycombing or architectural distortion in the lungs. No acute area of infiltrative or consolidative change. Rig ht minor fissure intrafissural lymph node measuring up to 6 mm, 2 mm pulmonary nodule in the lingula. LARGE AIRWAYS: Central airways are patent. No dynamic airway collapse on expiratory imaging. No bronc hiectasis. PLEURA: No pleural effusion or thickening. HEART: Heart is mildly enlarged for size. MEDIASTINUM: No gross evidence of adenopathy. There is a small hiatal hernia present VASCULATURE: No aortic aneurysm. MUSCULOSKELETAL: No acute osseous abnormalities SOFT TISSUES/LYMPH NODES: Unremarkable. LOWER NECK: No significant findings. UPPER ABDOMEN: No significant findings. IMPRESSION: 1. No evidence for interstitial lung disease, pulmonary fibrosis or finding to correlate patient's d yspnea. No evidence for post covid related interstitial lung disease. 2. Small hiatal hernia.
== END | disposition home or self-care (01) ==
LOC: RADCTMAIN 16:29
PROVIDERS: ATTEND Internal Medicine Critical Care Medicine
DX: K44.9 Diaphragmatic hernia without obstruction or gangrene (principal)
CPT/HCPCS: 71250

== ENCOUNTER → 2023-03-19 | Outpatient (CLI) | payer MEDICARE ==
[2023-03-19 12:39] LABS: Basophils % (A) 0 %; Eosinophils # (A) 0.4 k/uL (0-0.7); Eosinophils % (A) 4 %; HCT 42.6 % (34.0-46.0); HGB 14.4 gm/dL (11.4-16.0); Lymphocytes % (A) 21 %; MCH 31.9 pg (25.0-35.0); MCHC 33.7 g/dL (31.0-37.0); MCV 94.5 fL (80.0-100.0); Mean Platelet Volume 7.8; Monocytes # (A) 0.6 k/uL (0-1.0); Monocytes % (A) 6 %; Neutrophils # (A) 6.7 k/uL (1.3-7.7); Neutrophils % (A) 68 %; Platelet Count 324 k/uL (150-450); RBC 4.51 m/uL (3.80-5.40); RDW 12.6 % (11.5-15.5); WBC 9.8 k/uL (3.8-10.6)
[2023-03-19 13:08] LABS: ALT 24 U/L (4-34); AST 24 U/L (14-36); African American GFR (CKD) >90 (>60 ml/min/1.73 sqM); Albumin 4.3 g/dL (3.5-5.0); Albumin/Globulin Ratio 1.5; Alkaline Phosphatase 79 U/L (38-126); Anion Gap 10 mmol/L; Blood Urea Nitrogen 22 mg/dL (7-17); Calcium 9.4 mg/dL (8.4-10.2); Carbon Dioxide 24 mmol/L (22-30); Chloride 106 mmol/L (98-107); Globulin 2.9 g/dL; Glucose 92 mg/dL (74-99); Non-African American GFR(CKD) 89 (>60 ml/min/1.73 sqM); Potassium 4.1 mmol/L (3.5-5.1); Sodium 140 mmol/L (137-145); Total Bilirubin 0.5 mg/dL (0.2-1.3); Total Protein 7.2 g/dL (6.3-8.2)
[2023-03-19 13:21] LABS: T4, Free (Free Thyroxine) 0.87 ng/dL (0.78-2.19)
== END | disposition home or self-care (01) ==
LOC: LABWHC1 10:45
PROVIDERS: ATTEND Nurse Practitioner Acute Care
DX: E55.9 Vitamin D deficiency, unspecified (principal); R20.8 Other disturbances of skin sensation; H53.8 Other visual disturbances; E53.9 Vitamin B deficiency, unspecified; G35 Multiple sclerosis; G43.909 Migraine, unspecified, not intractable, without status migrainosus; R06.02 Shortness of breath; R07.9 Chest pain, unspecified
CPT/HCPCS: 36415; 80053; 82306; 82607; 83880; 84207; 84439; 84443; 84484; 85025; 85379

== ENCOUNTER → 2023-03-21 | Outpatient (CLI) | payer MEDICARE ==
[2023-03-21 21:34] LABS: T4, Free (Free Thyroxine) 1.15 ng/dL (0.80-1.80)
== END | disposition home or self-care (01) ==
LOC: LABWHC1 10:24
PROVIDERS: ATTEND Family Medicine
DX: R94.6 Abnormal results of thyroid function studies (principal)
CPT/HCPCS: 36415; 84439; 84443

== ENCOUNTER → 2023-09-11 | Outpatient (CLI) | payer MEDICARE ==
--- NOTE | 2023-09-12 09:02 | MM ---
Reason for Exam: Screening (asymptomatic). Last mammogram was performed 11 year(s) and 6 month(s) ago. Patient History: Menarche at age 11. First Full-Term at age 18. Hysterectomy at age 44. Hormonal Contraceptives for 8 years from age 19 until age 30. 03/2012, Benign Excisional Biopsy on the right side. 2009, Benign Excisional Biopsy on the right side. Risk Values: Gretchen 5 year model risk: 1.5%. NCI Lifetime model risk: 9.3%. Prior Study Comparison: 04/24/2011 Bilateral Diagnostic Mammogram, [facility]. 03/25/2012 Bilateral Diagnostic Mammogram, [facility]. 07/16/2012 Right Diagnostic Mammogram, [facility]. Tissue Density: The breast tissue is heterogeneously dense. This may lower the sensitivity of mammography. Findings: Analyzed By CAD. Asymmetry right breast lateral aspect posterior nipple line on MLO view. Approximately 5.1 cm nipple. Left breast: There is no suspicious group of microcalcifications or new suspicious mass. Overall Assessment: Incomplete: need additional imaging evaluation, BI-RAD 0 Management: Diagnostic Mammogram of the right breast. [facility] will attempt to contact patient to return for supplemental views and ultrasound if indicated. Patient should continue monthly self-breast exams. A clinical breast exam by your physician is recommended on an annual basis. This exam should not preclude additional follow-up of suspicious palpable abnormalities. Note on Gretchen scores and lifetime risk: 1. A Gretchen score greater than 3% is considered moderate risk. If this is the case, consider specialist referral to assess eligibility for a risk reducing agent. 2. If overall lifetime risk for the development of breast cancer is 20% or higher, the patient may qualify for future screening with alternating mammogram and breast MRI. Electronically signed and approved by: Paramjit Norwood DO
== END | disposition home or self-care (01) ==
LOC: RADMAMWWP 08:19
PROVIDERS: ATTEND Family Medicine
DX: Z12.31 Encounter for screening mammogram for malignant neoplasm of breast (principal)
CPT/HCPCS: 77063; 77067

== ENCOUNTER → 2023-09-25 | Outpatient (CLI) | payer MEDICARE ==
--- NOTE | 2023-09-25 14:06 | MM ---
Reason for Exam: Additional evaluation requested from abnormal screening. Last screening mammogram was performed less than 1 month ago. Patient History: Menarche at age 11. First Full-Term at age 18. Hysterectomy at age 44. Hormonal Contraceptives for 8 years from age 19 until age 30. 03/2012, Benign Excisional Biopsy on the right side. 2009, Benign Excisional Biopsy on the right side. Risk Values: Gretchen 5 year model risk: 1.5%. NCI Lifetime model risk: 9.3%. Tissue Density: Right: The breast tissue is heterogeneously dense. This may lower the sensitivity of mammography. Findings: Analyzed By CAD. Suspect postsurgical distortion subareolar right breast. The area becomes much less defined on additional spot 3-D views. Stability can be confirmed on a 6 month follow-up. Overall Assessment: Probably benign, BI-RAD 3 Management: Diagnostic Mammogram of the right breast in 6 months. . Results were given to the patient verbally at the time of exam. Patient should continue monthly self-breast exams. A clinical breast exam by your physician is recommended on an annual basis. This exam should not preclude additional follow-up of suspicious palpable abnormalities. Note on Gretchen scores and lifetime risk: 1. A Gretchen score greater than 3% is considered moderate risk. If this is the case, consider specialist referral to assess eligibility for a risk reducing agent. 2. If overall lifetime risk for the development of breast cancer is 20% or higher, the patient may qualify for future screening with alternating mammogram and breast MRI. Electronically signed and approved by: Isabela Son M.D. Radiologist
== END | disposition home or self-care (01) ==
LOC: RADMAMWWP 13:38
PROVIDERS: ATTEND Family Medicine
DX: R92.331 Mammographic heterogeneous density, right breast (principal)
CPT/HCPCS: 77065; G0279; 77061

== ENCOUNTER → 2023-11-19 | Outpatient (CLI) | payer MEDICARE ==
[2023-11-19 13:15] LABS: Appearance,Urine Clear (Clear); Bilirubin,Urine Negative (Negative); Blood,Urine Negative (Negative); Color,Urine Yellow; Glucose,Urine (UA) Negative (Negative); Hyaline Casts,Urine 23 /lpf (0-2); Ketones,Urine Negative (Negative); Leukocyte Esterase,Urine Trace (Negative); Mucus,Urine Rare /hpf; Nitrite,Urine Negative (Negative); Protein,Urine Trace (Negative); RBC,Urine 2 /hpf (0-5); Specific Gravity,Urine 1.013 (1.001-1.035); Squamous Epithelial Cell,Urine 4 /hpf (0-4); Urobilinogen,Urine <2.0 mg/dL (<2.0); WBC,Urine 4 /hpf (0-5)
[2023-11-19 16:40] LABS: ALT 29 U/L (8-44); AST 25 U/L (13-35); Albumin 4.5 g/dL (3.8-4.9); Albumin/Globulin Ratio 1.41 Ratio (1.60-3.17); Alkaline Phosphatase 85 U/L (41-126); BUN/Creat Ratio 19.58 Ratio (12.00-20.00); Blood Urea Nitrogen 37.2 mg/dL (9.0-27.0); Calcium 9.9 mg/dL (8.7-10.3); Carbon Dioxide 24.5 mmol/L (21.6-31.8); Chloride 100 mmol/L (96-109); Chol/HDL Ratio 2.84 Ratio; Globulin 3.2 g/dL (1.6-3.3); Glucose 105 mg/dL (70-110); LDL Cholesterol,Calculated 47.4 mg/dL (0.0-131.0); Sodium 141 mmol/L (135-145); T4, Free (Free Thyroxine) 1.25 ng/dL (0.80-1.80); Total Bilirubin 0.5 mg/dL (0.3-1.2); Total Protein 7.7 g/dL (6.2-8.2)
[2023-11-19 16:46] LABS: HCT 42.6 % (37.2-46.3); HGB 14.4 g/dL (12.0-15.0); MCHC 33.8 g/dL (32.0-37.0); MCV 94.7 FL (80.0-97.0); Mean Platelet Volume 9.8 FL (9.5-12.2); NRBC Per 100 WBC 0 X 10*3/uL (0.00-0.01); Platelet Count 309 X 10*3/uL (140-440); RDW 11.8 % (11.5-14.5); WBC 9.02 X 10*3/uL (4.50-10.00)
[2023-11-19 16:47] LABS: Basophils # (A) 0.03 X 10*3/uL (0.00-0.10); Basophils % (A) 0.3 %; Eosinophils # (A) 0.23 X 10*3/uL (0.04-0.35); Eosinophils % (A) 2.5 %; Lymphocytes # (A) 2.06 X 10*3/uL (0.90-5.00); Lymphocytes % (A) 22.8 %; Monocytes # (A) 0.79 X 10*3/uL (0.20-1.00); Monocytes % (A) 8.8 %; Neutrophils # (A) 5.87 X 10*3/uL (1.80-7.70); Neutrophils % (A) 65.2 %
== END | disposition home or self-care (01) ==
LOC: LABWHC1 09:01
PROVIDERS: ATTEND Family Medicine
DX: G35 Multiple sclerosis (principal); E55.9 Vitamin D deficiency, unspecified; F90.9 Attention-deficit hyperactivity disorder, unspecified type; G43.909 Migraine, unspecified, not intractable, without status migrainosus
CPT/HCPCS: 36415; 80053; 80061; 81001; 82306; 83036; 84439; 84443; 85025

== ENCOUNTER 2023-12-16 10:41 | Day surgery (SDC) | payer MEDICARE ==
[~2023-12-16 10:41] MED LIST: LACTATED RINGERS 1,000 ML IV SCH
[2023-12-16] MEDS: LACTATED RINGERS 1,000 ML IV ONE (11:01)
[2023-12-16 11:22] VITALS: RESP 16; TEMP 97.6
[2023-12-16] MEDS ORDERED: PROPOFOL 10 MG/ML 20 ML VIAL IV ONE (12:03)
[2023-12-16] MEDS ORDERED: LIDOCAINE 1% INJ 10MG/ML (20 ML MDV) ONE (12:03)
--- NOTE | 2023-12-16 12:16 | P.PCN ---
Date of Procedure: 12/16/23 Procedure(s) Performed: BRIEF HISTORY: Patient is a 58-year-old pleasant white female scheduled for an elective colonoscopy as a part of evaluation of chronic intermittent diarrhea and rectal bleeding for the last 1 year duration. PROCEDURE PERFORMED: Colonoscopy with biopsy. PREOPERATIVE DIAGNOSIS: Chronic intermittent diarrhea and rectal bleeding. IV sedation per Anesthesia. PROCEDURE: After informed consent was obtained, the patient, was brought into the endoscopy unit. IV sedation was administered by Anesthesia under continuous monitoring. Digital rectal examination was normal. Initially the Olympus CF-160 flexible video colonoscope was then inserted in the rectum, gradually advanced into the cecum without any difficulty. Careful examination was performed as the scope was gradually being withdrawn. Ileocecal valve and the appendiceal orifice were visualized and appeared normal. Prep was excellent. The ileum was intubated and 20 cm visualized appeared normal. Mucosa of the cecum, ascending colon, transverse colon, descending colon, sigmoid colon, and rectum appeared normal. Random biopsies were done from ascending and descending colon to rule out microscopic/collagenous colitis. Retroflexion was performed in the rectum and small internal hemorrhoids were seen. The patient tolerated the procedure well. IMPRESSION: Normal-appearing colon from rectum to cecum with no evidence of colitis or colorectal neoplasia . Small internal hemorrhoids. RECOMMENDATIONS: Findings of this examination were discussed with the patient as well as her family. She was advised to follow with the biopsy results.. A ALYSSA high-fiber diet and take fiber supplements a regular basis. Recommended repeat screening colonoscopy in 10 years
[2023-12-16 12:32] VITALS: PULSE 72
[2023-12-16 13:07] VITALS: BP 125/73
== END 2023-12-16 13:05 | disposition home or self-care (01) ==
LOC: ORWHC2ENDO 10:41
PROVIDERS: ATTEND Internal Medicine Gastroenterology
DX: K64.8 Other hemorrhoids (principal); I10 Essential (primary) hypertension; F41.9 Anxiety disorder, unspecified; F90.9 Attention-deficit hyperactivity disorder, unspecified type; G35 Multiple sclerosis; G43.909 Migraine, unspecified, not intractable, without status migrainosus; K21.9 Gastro-esophageal reflux disease without esophagitis; Z88.8 Allergy status to other drugs, medicaments and biological substances; Z79.899 Other long term (current) drug therapy; Z90.710 Acquired absence of both cervix and uterus
CPT/HCPCS: 88305; 45380; J2001; J2704